=== PATIENT | female | born 1970 | race Caucasian/White ===

== ENCOUNTER → 2024-01-13 06:29 | Day surgery (SDC) | payer OTHER, SELFPAY | LOC: GI 06:29 | PROVIDERS: ATTENDING PHYSICIAN Internal Medicine Gastroenterology; FAMILY PHYSICIAN Family Medicine | DX: Z12.11 Encounter for screening for malignant neoplasm of colon (principal); R93.3 Abnormal findings on diagnostic imaging of other parts of digestive tract; K57.30 Diverticulosis of large intestine without perforation or abscess without bleeding; R14.0 Abdominal distension (gaseous); K31.89 Other diseases of stomach and duodenum; K29.50 Unspecified chronic gastritis without bleeding | CPT/HCPCS: 45380; 43239; 88305; 88342 ==

== ENCOUNTER 2024-11-08 18:49 | Emergency (ER) | payer MEDICARE, OTHER, SELFPAY ==
[2024-11-08 18:59] VITALS: BP 138/98
[2024-11-08 19:26] LABS: Urine Albumin Negative (Neg - Trace); Urine Bilirubin Negative (Negative); Urine Character Clear (Clear); Urine Color Yellow; Urine Glucose Negative (Negative); Urine Ketone Negative (Negative); Urine Leukocyte 1+ (Negative); Urine Nitrite Positive (Negative); Urine Occult Blood Negative (Negative); Urine Urobilinogen Negative (Neg - 1+)
[2024-11-08 19:39] LABS: Urine Bacteria Many (Negative); Urine Red Blood Cell 0-2 /HPF (0-2); Urine White Cell 16-20 /HPF (0-5)
[2024-11-08 19:39] LABS: Lactic Acid 1.9 mmol/L (0.7-2.0)
[2024-11-08 19:40] VITALS: BP 128/89
[2024-11-08 19:41] LABS: % Basophils 1.1 % (0-2); % Eosinophils 2.6 % (0-6); % Immature Granulocytes 0.1 % (0-0.5); % Monocytes 6.7 % (1.7-9.3); % Neutrophils 63.5 % (42.2-75.2); Absolute Basophils 0.1 10^3/uL (0-0.2); Absolute Eosinophils 0.2 10^3/uL (0-0.7); Absolute Monocytes 0.5 10^3/uL (0.1-0.6); Absolute Neutrophils 4.8 10^3/uL (1.4-6.5); Hematocrit 41.5 % (37.0-47.0); Hemoglobin 14.3 g/dL (12.0-16.0); Mean Corp Hgb Conc. 34.5 g/dL (33.0-37.0); Mean Corpuscular Hgb 31.5 pg (27.0-31.0); Mean Corpuscular Volume 91.4 fL (81.0-99.0); Mean Platelet Volume 9.5 fL (7.4-10.4); Nucleated Red Blood Cells % 0 %; Platelet Count 247 10^3/uL (130-400); Red Blood Cell Count 4.54 10^6/uL (4.20-5.40); Red Cell Dist. Width 11.9 % (11.5-14.5); White Blood Cell Count 7.6 10^3/uL (4.8-10.8)
[2024-11-08 19:42] VITALS: BMI 25.4
[2024-11-08 19:55] LABS: HCG, Serum Qualitative Screen Negative
--- NOTE | 2024-11-08 19:59 | ED.GENMED ---
History of Present Illness
<DO Mariza Mcbride Filed: 11/08/24 20:02>
General
Chief Complaint: Abdominal Pain
Source: patient
Time Seen by Provider: 11/08/24 19:45
History of Present Illness
History of Present Illness:
54-year-old female presents to the emergency room by ambulance for evaluation of abdominal pain. Patient had a sudden onset of abdominal pain couple hours prior to arrival. Patient was eating dinner at the time. She went home hoping the pain
would pass but it was not. They were planning to bring the patient to the emergency room by private vehicle but while walking out of the car she became limp. Family then called 911. Patient arrives awake, conversant. She has a history of
malignant melanoma for which she had chemotherapy.
Past History
<DO Mariza Mcbride Last Filed: 11/08/24 20:02>
Past History
ED Past Medical History: Asthma, Cancer (metastatic melanoma), Other (Herniated disc) and Other (Chronic R shoulder pain)
ED Past Surgical History: Appendectomy and Gynecological (lumpectomy summer)
Social History
Tobacco: Non-smoker
Alcohol: Occasional
Personal:
Living: with family
Employment: Employed
Family History
Family History: Other (Parkinson's)
Phy Exam
<DO Mariza Mcbride Last Filed: 11/08/24 20:02>
Physical Exam
Physical Exam:
General: Awake, Alert, Oriented X3. Patient appears uncomfortable
Vitals: unremarkable
Head: Atraumatic
Eyes: Pupils equal, EOMI
Throat: Airway intact, no exudates
Neck: Trachea midline
Lungs: Clear and equal b/l
Heart: Regular rate, no murmurs
Abd: Soft, tender to palpation lower abdomen, no rebound, No pulsatile mass
Neuro: Nonfocal
Skin: Warm, dry, no rash
Extremities: pulses equal b/l, no edema
Course
<Sanchez Gómez, DO - Last Filed: 11/08/24 20:02>
Orders/Labs/Results
Orders:
Orders
11/08/24 19:03
Electrocardiogram (*1) Urgent
Reason for Study: Other
Other Reason for Exam: jaw pain
11/08/24 19:04
EKG- Treatment ONCE
Test Result ONCE
11/08/24 19:15
Urine Culture Reflexed from UA [Urinalysis Reflex To Culture] Urgent
Date Specimen was Collected: 11/08/24
Time Specimen was Collected: 19:07
Urine Microscopic Reflex Cult Urgent
Urine Culture Urgent
EVERARDO Source: U
Specimen Description:
Date Specimen was Collected: 11/08/24
Time Specimen was Collected: 19:07
11/08/24 19:18
Complete Blood Count/With Diff Urgent
Comprehensive Metabolic Panel Urgent
HCG, Serum Qualitative Screen Urgent
Lactic Acid Urgent
Lipase Urgent
Troponin I Urgent
11/08/24 19:57
HYDROmorphone [Dilaudid] 0.5 mg IV NOW STA
11/08/24 19:58
CT Abd/pelvis W Iv Cont Urgent
Comment:
Reason For Exam: severe lower abd pain
Lactated Ringers [Lr] 1,000 ml IV BOLUS
11/08/24 23:56
0.9% Sodium Chloride 1000 ml [Nss] 1,000 ml IV BOLUS
11/09/24 00:00
US Pelvis Only (non-obstetric) Urgent
Reason For Exam: sudden pelvic pain, eval for torsion
11/09/24 00:02
Ketorolac [Toradol] 15 mg .ROUTE .STK-MED ONE
11/09/24 00:03
Ketorolac [Toradol] 15 mg IV NOW STA
11/09/24 01:44
Diphenhydramine [Benadryl] 25 mg IV NOW STA
Metoclopramide [Reglan] 10 mg IV NOW STA
Abnormal Lab Results
11/08/24 11/08/24
19:15 19:18
MCH 31.5 H pg
(27.0-31.0)
Creatinine 0.5 L mg/dL
(0.6-1.0)
Glucose 105 H mg/dl
(70-99)
Urine Nitrite (Reflex) Positive A
(Negative)
Leukocyte Esterase Rfl 1+ A
(Negative)
Urine WBC (Reflex) 16-20 A /HPF
(0-5)
Urine Bacteria (Reflex) Many A
(Negative)
11/08/24 19:18
11/08/24 19:18
Vital Signs
Initial and Last Documented VS:
Initial Vital Signs
Temp Pulse Resp BP Pulse Ox
36.4 C 93 20 138/98 97
11/08/24 18:59 11/08/24 18:59 11/08/24 18:59 11/08/24 18:59 11/08/24 18:59
Last Documented Vital Signs
Temp Pulse Resp BP Pulse Ox
36.4 C 77 19 121/78 99
11/08/24 18:59 11/09/24 02:05 11/09/24 02:05 11/09/24 02:05 11/09/24 02:05
<Shemar Dobson, DO - Last Filed: 11/09/24 02:40>
Orders/Labs/Results
Orders:
Orders
11/08/24 19:03
Electrocardiogram (*1) Urgent
Reason for Study: Other
Other Reason for Exam: jaw pain
11/08/24 19:04
EKG- Treatment ONCE
Test Result ONCE
11/08/24 19:15
Urine Culture Reflexed from UA [Urinalysis Reflex To Culture] Urgent
Date Specimen was Collected: 11/08/24
Time Specimen was Collected: 19:07
Urine Microscopic Reflex Cult Urgent
Urine Culture Urgent
EVERARDO Source: U
Specimen Description:
Date Specimen was Collected: 11/08/24
Time Specimen was Collected: 19:07
11/08/24 19:18
Complete Blood Count/With Diff Urgent
Comprehensive Metabolic Panel Urgent
HCG, Serum Qualitative Screen Urgent
Lactic Acid Urgent
Lipase Urgent
Troponin I Urgent
11/08/24 19:57
HYDROmorphone [Dilaudid] 0.5 mg IV NOW STA
11/08/24 19:58
CT Abd/pelvis W Iv Cont Urgent
Comment:
Reason For Exam: severe lower abd pain
Lactated Ringers [Lr] 1,000 ml IV BOLUS
11/08/24 23:56
0.9% Sodium Chloride 1000 ml [Nss] 1,000 ml IV BOLUS
11/09/24 00:00
US Pelvis Only (non-obstetric) Urgent
Reason For Exam: sudden pelvic pain, eval for torsion
11/09/24 00:02
Ketorolac [Toradol] 15 mg .ROUTE .STK-MED ONE
11/09/24 00:03
Ketorolac [Toradol] 15 mg IV NOW STA
11/09/24 01:44
Diphenhydramine [Benadryl] 25 mg IV NOW STA
Metoclopramide [Reglan] 10 mg IV NOW STA
Abnormal Lab Results
11/08/24 11/08/24
19:15 19:18
MCH 31.5 H pg
(27.0-31.0)
Creatinine 0.5 L mg/dL
(0.6-1.0)
Glucose 105 H mg/dl
(70-99)
Urine Nitrite (Reflex) Positive A
(Negative)
Leukocyte Esterase Rfl 1+ A
(Negative)
Urine WBC (Reflex) 16-20 A /HPF
(0-5)
Urine Bacteria (Reflex) Many A
(Negative)
11/08/24 19:18
11/08/24 19:18
Vital Signs
Initial and Last Documented VS:
Initial Vital Signs
Temp Pulse Resp BP Pulse Ox
36.4 C 93 20 138/98 97
11/08/24 18:59 11/08/24 18:59 11/08/24 18:59 11/08/24 18:59 11/08/24 18:59
Last Documented Vital Signs
Temp Pulse Resp BP Pulse Ox
36.4 C 77 19 121/78 99
11/08/24 18:59 11/09/24 02:05 11/09/24 02:05 11/09/24 02:05 11/09/24 02:05
<Shemar Dobson, DO - Last Filed: 11/09/24 02:40>
*Critical Care Note
Total Time (30-74mins, 75-104mins- exclusive of procedures): Not Applicable
<Shemar Dobson, DO - Last Filed: 11/09/24 02:40>
Update Note
Update Note:
I evaluated patient at bedside at 1:40 AM. Ultrasound imaging is unremarkable. Urinalysis suggest more of a contamination and blood work unremarkable. Nausea persists but she states that she does not want to try any Zofran. Will try Reglan with
Benadryl.
2:40 AM: Patient overall improved after Reglan Benadryl and wants to go home.
ED Attending Note
<Sanchez Gómez DO - Last Filed: 11/08/24 20:02>
-
Portions of this chart may have been created with voice recognition software.� Occasional wrong word or��sound alike� substitutions may have occurred due to the inherent limitations of voice recognition software.
Discharge Plan
Departure
Patient Disposition: Home (Routine Discharge)
Date of Disposition: 11/09/24
Time of Disposition: 02:38
Patient with high blood pressure during this ER visit?: Yes
Condition: Good
Discharge Problem:
Abdominal pain, Constipation
Instructions: Constipation, Adult (DC), Abdominal Pain
Prescriptions:
No Action
gabapentin [Neurontin] 600 MG tablet
600 mg PO HS
paroxetine HCl 20 MG tablet
20 mg PO DAILY
dextroamphetamine-amphetamine [Adderall XR] 10 MG capsule,extended release 24hr
10 mg PO DAILY PRN (Reason: ADD)
hydrocodone-acetaminophen 1 TABLET tablet
1 tab PO Q4HPRN PRN (Reason: pain) Qty: 7 0RF
Referrals:
Tim Faustin DO [Family Provider] -
Activity Restrictions/Additional Instructions:
You can use Miralax one capful twice a day for constipation. Ultrasound imaging was unremarkable. Blood work was normal. Return here if worse or other concerns. We did give you a dose of Reglan with Benadryl tonight for nausea.
Interventions
Interventions:
*Risk Screen - Suicide Last Done: 11/08/24 20:36
*General Assessment Last Done: 11/08/24 18:59
*Neglect/Abuse Screening Last Done: 11/08/24 20:36
ED- Fall Risk Assessment Last Done: 11/08/24 19:41
*ED COVID-19 Vaccine History Last Done: 11/08/24 20:36
LJ-Kcpwgl-Wzmfjunodo Assessment Last Done: 11/08/24 19:36
Discharge Date and Time
Print Language: ARABIC
[2024-11-08 20:01] LABS: ALT (SGPT) 32 U/L (0-35); AST (SGOT) 34 U/L (14-36); Albumin 4.9 g/dl (3.5-5.0); Alkaline Phosphatase 53 U/L (38-126); Blood Urea Nitrogen 11 mg/dl (7-17); Calcium 9.6 mg/dl (8.4-10.2); Carbon Dioxide 22 mmol/L (22-30); Chloride 104 mmol/L (98-107); Estimated Creatinine Clearance 91 ml/min; Glucose 105 mg/dl (70-99); Potassium 3.8 mmol/L (3.5-5.1); Sodium 140 mmol/L (135-145); Total Bilirubin 0.3 mg/dl (0.2-1.3); Total Protein 7.4 g/dl (6.3-8.2); eGFR > 60.00
[2024-11-08 20:02] LABS: Lipase 216 U/L (23-300)
[2024-11-08 20:09] LABS: Troponin I < 0.012 ng/ml
[2024-11-08] MEDS: LR 1000 IV (20:21)
[2024-11-08] MEDS: DILAUDID 0.5 MG IV (20:21)
[2024-11-08 20:23] VITALS: BP 121/79
[2024-11-08 21:00] VITALS: BP 125/82
[2024-11-08 22:10] VITALS: BP 128/94
[2024-11-08 23:03] VITALS: BP 137/87
[2024-11-09] VITALS: BP 139/91
[2024-11-09] MEDS: NSS 1000 IV
[2024-11-09] MEDS: TORADOL 15 MG IV (00:03)
[2024-11-09 01:17] VITALS: BP 126/83
[2024-11-09] MEDS: REGLAN 10 MG IV (01:52)
[2024-11-09] MEDS: BENADRYL 25 MG IV (01:53)
[2024-11-09 02:00] VITALS: BP 120/83
[2024-11-09 02:05] VITALS: BP 121/78
== END 2024-11-09 02:50 | disposition home or self-care (01) ==
LOC: EMR 18:49
PROVIDERS: Emergency Medicine; Student in an Organized Health Care Education/Training Program; EMERGENCY PHYSICIAN Emergency Medicine; FAMILY PHYSICIAN Family Medicine
DX: R10.30 Lower abdominal pain, unspecified (principal); K59.00 Constipation, unspecified; R11.0 Nausea; R68.84 Jaw pain; R03.0 Elevated blood-pressure reading, without diagnosis of hypertension; M25.511 Pain in right shoulder; J45.909 Unspecified asthma, uncomplicated; G89.29 Other chronic pain; Z85.820 Personal history of malignant melanoma of skin; Z92.21 Personal history of antineoplastic chemotherapy; Z88.2 Allergy status to sulfonamides
CPT/HCPCS: 99285; 96375 ×3; 96361 ×2; 96374; 74177; 76856; 80053; 81003; 81015; 83605; 83690; 84484; 84703; 85025; 87077; 87086; 87186; 93005; Q9967

== ENCOUNTER 2025-03-22 11:36 | Emergency (ER) | payer MEDICARE, SELFPAY ==
[2025-03-22 11:48] VITALS: BP 117/84
[2025-03-22 12:10] LABS: Urine Albumin Negative (Neg - Trace); Urine Bilirubin Negative (Negative); Urine Character Clear (Clear); Urine Color Yellow; Urine Glucose Negative (Negative); Urine Ketone Negative (Negative); Urine Leukocyte 1+ (Negative); Urine Nitrite Negative (Negative); Urine Occult Blood Negative (Negative); Urine Urobilinogen Negative (Neg - 1+)
--- NOTE | 2025-03-22 12:41 | ED.GENMED ---
History of Present Illness
<Jessie Krueger PA-C - Last Filed: 03/23/25 01:47>
General
Chief Complaint: Abdominal Symptoms
Source: patient
Exam Limitations: none
Time Seen by Provider: 03/22/25 12:01
Nursing documentation reviewed up to this point in time: agreed with
History of Present Illness
History of Present Illness:
Patient is a 54-year-old female with history of metastatic melanoma presenting to the emergency department for evaluation of back pain. Patient reports pain in right lower back which radiates around her right side and into her right groin which
started last . At first symptoms were intermittent in nature and seem to be associated with movement although over the past day pain has intensified. Patient denies any associated fever, chills, vomiting. She denies any diarrhea or
constipation. No hematuria, dysuria, or urinary frequency. No chest pain, shortness breath, or cough. No groin paresthesias or numbness/tingling or weakness in extremities.
She was seen by her primary care on Friday where she had a urinalysis performed and was started on a 5-day course of Macrobid and given a muscle relaxer. She has been taking antibiotic as prescribed although reports no improvement in symptoms
despite Flexeril and Macrobid.
No known inciting injury or trauma.
Past History
<Jessie Krueger PA-C - Last Filed: 03/23/25 01:47>
Past History
ED Past Medical History: Asthma, Cancer (metastatic melanoma), Other (Herniated disc) and Other (Chronic R shoulder pain)
ED Past Surgical History: Appendectomy and Gynecological (lumpectomy summer)
Social History
Tobacco: Non-smoker
Alcohol: Occasional
Personal:
Living: with family
Employment: Employed
Family History
Family History: Other (Parkinson's)
Review of Systems
<Jessie Krueger PA-C - Last Filed: 03/23/25 01:47>
Review of Systems
Allergies reviewed?: Yes
All Other Systems: ROS reviewed and negative except as documented in HPI and ROS
Phy Exam
<Jessie Krueger PA-C - Last Filed: 03/23/25 01:47>
Physical Exam
Physical Exam:
Vitals: Patient's vital signs are stable. Afebrile
General: Patient is well appearing, no acute distress. Nontoxic appearing
Skin: Warm and dry, no rashes or lesions
Head: Normocephalic, atraumatic
Eyes: Sclera nonicteric. EOMs intact. No nystagmus.
Throat: Protecting airway
Neck: Normal ROM, no cervical spine tenderness, no meningismus
Cardiac: Regular rate and rhythm, no murmurs. Palpable peripheral pulses equal bilaterally.
Pulm: Normal respiratory effort, no wheezes, rales, rhonchi heard on exam
.
Abdomen: Abdomen soft. Tenderness in right inguinal region. No rebound tenderness or guarding. No palpable mass. No rash.
Back: Reproducible tenderness to right lower back. Negative straight leg raise on right. No rash.
Extremities: No evidence of cyanosis or edema
Neuro: AAOx3. Grossly intact.
Psychiatric: Normal affect.
Course
<Jessie Krueger PA-C - Last Filed: 03/23/25 01:47>
Orders/Labs/Results
Orders:
Orders
03/22/25 11:59
HCG, Urine Qualitative Screen Urgent
Date Specimen was Collected: 03/22/25
Time Specimen was Collected: 11:52
Urinalysis Reflex To Culture Urgent
Date Specimen was Collected: 03/22/25
Time Specimen was Collected: 11:52
Urine Microscopic Reflex Cult Urgent
Urine Culture Urgent
EVERARDO Source: U
Specimen Description:
Date Specimen was Collected: 03/22/25
Time Specimen was Collected: 11:52
03/22/25 12:22
Abdomen/Pelvis wo Contrast CT [CT Abd/pelvis Wo Iv Cont] Urgent
Comment:
Reason For Exam: Right lower back/ right inguinal pain
0.9% Sodium Chloride 1000 ml [Nss] 1,000 ml IV BOLUS
Ketorolac [Toradol] 15 mg IV NOW STA
03/22/25 12:37
Basic Metabolic Panel Urgent
Complete Blood Count/With Diff Urgent
03/22/25 12:41
Add On- LAB Urgent
Tests Added?: serum hcg
03/22/25 13:45
HYDROmorphone [Dilaudid] 0.5 mg IV NOW STA
03/22/25 14:30
Comprehensive Metabolic Panel Urgent
03/22/25 15:49
Add On - Microbiology Urgent
Tests Added?: urine culture
Abnormal Lab Results
03/22/25 03/22/25 03/22/25
11:59 12:37 14:30
MCH 31.6 H pg
(27.0-31.0)
Chloride 111 H mmol/L 112 H mmol/L
(98-107) (98-107)
Creatinine 0.5 L mg/dL
(0.6-1.0)
Glucose 106 H mg/dl
(70-99)
Leukocyte Esterase Rfl 1+ A
(Negative)
03/22/25 12:37
03/22/25 14:30
Vital Signs
Initial and Last Documented VS:
Initial Vital Signs
Temp Resp BP Pulse Ox
97.7 F 16 117/84 98
03/22/25 11:48 03/22/25 11:48 03/22/25 11:48 03/22/25 11:48
Last Documented Vital Signs
Temp Resp BP Pulse Ox
97.7 F 16 117/84 98
03/22/25 11:48 03/22/25 11:48 03/22/25 11:48 03/22/25 11:48
<Trish Hardwick MD - Last Filed: 03/22/25 16:48>
Orders/Labs/Results
Orders:
Orders
03/22/25 11:59
HCG, Urine Qualitative Screen Urgent
Date Specimen was Collected: 03/22/25
Time Specimen was Collected: 11:52
Urinalysis Reflex To Culture Urgent
Date Specimen was Collected: 03/22/25
Time Specimen was Collected: 11:52
Urine Microscopic Reflex Cult Urgent
Urine Culture Urgent
EVERARDO Source: U
Specimen Description:
Date Specimen was Collected: 03/22/25
Time Specimen was Collected: 11:52
03/22/25 12:22
Abdomen/Pelvis wo Contrast CT [CT Abd/pelvis Wo Iv Cont] Urgent
Comment:
Reason For Exam: Right lower back/ right inguinal pain
0.9% Sodium Chloride 1000 ml [Nss] 1,000 ml IV BOLUS
Ketorolac [Toradol] 15 mg IV NOW STA
03/22/25 12:37
Basic Metabolic Panel Urgent
Complete Blood Count/With Diff Urgent
03/22/25 12:41
Add On- LAB Urgent
Tests Added?: serum hcg
03/22/25 13:45
HYDROmorphone [Dilaudid] 0.5 mg IV NOW STA
03/22/25 14:30
Comprehensive Metabolic Panel Urgent
03/22/25 15:49
Add On - Microbiology Urgent
Tests Added?: urine culture
Abnormal Lab Results
03/22/25 03/22/25 03/22/25
11:59 12:37 14:30
MCH 31.6 H pg
(27.0-31.0)
Chloride 111 H mmol/L 112 H mmol/L
(98-107) (98-107)
Creatinine 0.5 L mg/dL
(0.6-1.0)
Glucose 106 H mg/dl
(70-99)
Leukocyte Esterase Rfl 1+ A
(Negative)
03/22/25 12:37
03/22/25 14:30
Vital Signs
Initial and Last Documented VS:
Initial Vital Signs
Temp Resp BP Pulse Ox
97.7 F 16 117/84 98
03/22/25 11:48 03/22/25 11:48 03/22/25 11:48 03/22/25 11:48
Last Documented Vital Signs
Temp Resp BP Pulse Ox
97.7 F 16 117/84 98
03/22/25 11:48 03/22/25 11:48 03/22/25 11:48 03/22/25 11:48
<Jessie Krueger PA-C - Last Filed: 03/23/25 01:47>
MDM/Problems Addressed
Differential Diagnosis Includes:
Not limited to: Ureterolithiasis, pyelonephritis, cystitis, ovarian cyst/mass, sciatica, metastatic disease, etc.
MDM/Problems Addressed:
54-year-old female presenting with right lower back pain radiating into right groin. Symptoms ongoing for the past week, seen by PCP and started on course of Macrobid for suspected UTI without improvement in symptoms. No improvement with muscle
relaxer. No associated fever, chest pain, shortness of breath, urinary symptoms, vomiting, saddle paresthesias, LE numbness/weakness or other neurologic deficits. Pain does seem worse w/ movement. Vitals stable on arrival. Patient is afebrile.
Physical exam as above. Differential broad. Will send basic labs, urinalysis, and non-con CT of abdomen/pelvis. IVF and pain management
Update: Labs reviewed. No clinically significant abnormalities on CBC or chemistry. Urine without evidence of infection or RBCs. CT scan shows no evidence of kidney stone or other acute intra-abdominal process. Unclear exact etiology for symptoms
today. Given patient afebrile w/ benign abdominal exam and no leukocytosis � do not suspect infectious process. Do not suspect emergent musculoskeletal/neurological process such as cauda equina. Do not suspect aortic pathology or other vascular
emergency. Symptoms possibly muscular vs. sciatica. Did contact patients PCP and reviewed urine culture results which was positive for E. coli and sensitive to macrobid. Advised patient to continue macrobid as prescribed and follow w/ PCP. Close
return precautions discussed. Patient seen with attending physician.
Chronic conditions affecting care:
Metastatic melanoma
Acute Exacerbation and/or Progression of Chronic Illness:
N/A
<Jessie Krueger PA-C - Last Filed: 03/23/25 01:47>
*Radiology
Radiology exam reviewed: radiology read reviewed
*Pulse Oximetry
Patient hypoxic: no
*EKG
Interpreted by ED Provider?: NA
*[employer] Interpretation
Rate: [employer]- N/A
*Critical Care Note
Total Time (30-74mins, 75-104mins- exclusive of procedures): Not Applicable
Data Reviewed
Review of Other/Old Records Reveals: Labs (Urine culture results obtained 03/18/2025-positive for E. coli sensitive to Macrobid)
<Jessie Krueger PA-C - Last Filed: 03/23/25 01:47>
Patient Management
Discussion with other providers: Other (Discussed urine culture results with patient's primary care doctor-Dr. Faustin)
ED Attending Note
<Jessie Krueger PA-C - Last Filed: 03/23/25 01:47>
-
Portions of this chart may have been created with voice recognition software.� Occasional wrong word or��sound alike� substitutions may have occurred due to the inherent limitations of voice recognition software.
<Trish Hardwick MD - Last Filed: 03/22/25 16:48>
ED Attending Note
Patient seen and examined by attending physician: Yes
I performed the substantive portion of visit, reviewed & personally made and approve the management plan that is documented in note by myself or KEV.: Yes
ED Attending Note:
54 yr old female with c/o R lower back pain that began one week ago, seen by pcp on fri, dx'd with uti, on abx and baclofen. Feels pain getting worse. No f/c/v/cp/sob/numb/tingling/weakness/incontinence/perianal anesthesia. No swelling/redness or
rash. Pt is able to walk without difficulty now, notes pain worse at night, somestimes radiates around to rlq area. Worse with certain movemetns. ON exam, pt aao times three, in nad, feels 'fine' now s/p meds, maee without diffiulty. Long d/w pt
regarding testing, findings of constipation which are unlikely true cause of her sxs, ddx to include radiculopathy/ spine related (but not emergent) related illness such as disc herniation, msk, etc. She will be givena copy of her results nad /fu
with pcp in am. No s/sxs to suggest CE, acute vascular event, etc. We will contact pcp now to make him aware, and inquire re:cx results from last week.
Discharge Plan
Departure
Patient Disposition: Home (Routine Discharge)
Date of Disposition: 03/22/25
Time of Disposition: 16:50
Patient with high blood pressure during this ER visit?: No
Condition: Good
Discharge Problem:
Lower back pain
Instructions: Low back pain - ED discharge instructions
Prescriptions:
New
oxycodone-acetaminophen [Percocet] 5-325 mg tablet
1 tab PO Q6H PRN (Reason: Pain) Qty: 7 0RF
No Action
gabapentin [Neurontin] 600 MG tablet
600 mg PO HS
paroxetine HCl 20 MG tablet
20 mg PO DAILY
dextroamphetamine-amphetamine [Adderall XR] 10 MG capsule,extended release 24hr
10 mg PO DAILY PRN (Reason: ADD)
hydrocodone-acetaminophen 1 TABLET tablet
1 tab PO Q4HPRN PRN (Reason: pain) Qty: 7 0RF
amoxicillin-pot clavulanate 875-125 mg tablet
1 tab PO BID 7 Days Qty: 14 0RF
Referrals:
Tim Faustin DO [Family Provider] - Follow up in 5-7 days
Activity Restrictions/Additional Instructions:
RETURN TO THE EMERGENCY DEPARTMENT ANY FEVER, CHILLS, SEVERE BACK PAIN, WORSENING/PERSISTENT ABDOMINAL PAIN, INTRACTABLE NAUSEA/VOMITING, NUMBNESS/TINGLING OR WEAKNESS IN LOWER EXTREMITIES, BOWEL/BLADDER INCONTINENCE, OR ANY OTHER CONCERNS
- As discussed - your workup in the emergency department showed no acute abnormalities including lab work, urinalysis, and CT scan abdomen/pelvis.
- We are unsure the exact cause of her back pain today although this may be muscular in nature. You can take Tylenol and/or Motrin as needed for pain. I have sent a few Percocet you can take for severe pain. This may cause drowsiness you should
not take prior to driving.
- Follow-up with your primary care for further evaluation/management and to ensure that symptoms are improving. You should also follow with your doctors down at [place].
Monitor your symptoms closely and return to the emergency department with any acute worsening/new symptoms or any other concerns
Interventions
Interventions:
*Risk Screen - Suicide Last Done: 03/22/25 11:51
*General Assessment Last Done: 03/22/25 12:08
*Neglect/Abuse Screening Last Done: 03/22/25 11:51
*ED- Fall Risk Assessment Last Done: 03/22/25 12:08
*ED COVID-19 Vaccine History Last Done: 03/22/25 12:08
*Nursing Disposition Last Done: 03/22/25 17:05
UZ-Qadczf-Jcplodlyay Assessment Last Done: 03/22/25 12:11
Discharge Date and Time
Discharge Date/Time: 03/22/25 17:06
Print Language: MACEDONIAN
[2025-03-22] MEDS: NSS 1000 IV (12:45)
[2025-03-22] MEDS: TORADOL 15 MG IV (12:45)
[2025-03-22 13:05] LABS: % Basophils 1.1 % (0-2); % Eosinophils 2.6 % (0-6); % Immature Granulocytes 0.1 % (0-0.5); % Monocytes 5.7 % (1.7-9.3); % Neutrophils 66.5 % (42.2-75.2); Absolute Basophils 0.1 10^3/uL (0-0.2); Absolute Eosinophils 0.2 10^3/uL (0-0.7); Absolute Lymphocytes 1.9 10^3/uL (1.2-3.4); Absolute Monocytes 0.5 10^3/uL (0.1-0.6); Absolute Neutrophils 5.4 10^3/uL (1.4-6.5); Hematocrit 43.4 % (37.0-47.0); Hemoglobin 14.7 g/dL (12.0-16.0); Mean Corp Hgb Conc. 33.9 g/dL (33.0-37.0); Mean Corpuscular Hgb 31.6 pg (27.0-31.0); Mean Corpuscular Volume 93.3 fL (81.0-99.0); Mean Platelet Volume 9.8 fL (7.4-10.4); Nucleated Red Blood Cells % 0 %; Platelet Count 278 10^3/uL (130-400); Red Blood Cell Count 4.65 10^6/uL (4.20-5.40); Red Cell Dist. Width 12.2 % (11.5-14.5); White Blood Cell Count 8.1 10^3/uL (4.8-10.8)
[2025-03-22 13:23] LABS: Urine Amorphous Seen; Urine Red Blood Cell 0-2 /HPF (0-2); Urine White Cell 0-2 /HPF (0-5)
[2025-03-22 13:25] LABS: Blood Urea Nitrogen 12 mg/dl (7-17); Calcium 9.7 mg/dl (8.4-10.2); Carbon Dioxide 25 mmol/L (22-30); Chloride 111 mmol/L (98-107); Glucose 106 mg/dl (70-99); Sodium 142 mmol/L (135-145); eGFR > 60.00
[2025-03-22 13:29] LABS: HCG, Urine Qualitative Screen Negative
[2025-03-22] MEDS: DILAUDID 0.5 MG IV (14:29)
[2025-03-22 14:55] LABS: ALT (SGPT) 19 U/L (0-35); AST (SGOT) 25 U/L (14-36); Albumin 4.3 g/dl (3.5-5.0); Alkaline Phosphatase 67 U/L (38-126); Blood Urea Nitrogen 11 mg/dl (7-17); Calcium 9.2 mg/dl (8.4-10.2); Carbon Dioxide 26 mmol/L (22-30); Chloride 112 mmol/L (98-107); Glucose 85 mg/dl (70-99); Potassium 4.7 mmol/L (3.5-5.1); Sodium 143 mmol/L (135-145); Total Bilirubin 0.5 mg/dl (0.2-1.3); Total Protein 6.7 g/dl (6.3-8.2); eGFR > 60.00
== END 2025-03-22 17:06 | disposition home or self-care (01) ==
LOC: EMR 11:36
PROVIDERS: Emergency Medicine; Physician Assistant; EMERGENCY PHYSICIAN Student in an Organized Health Care Education/Training Program; FAMILY PHYSICIAN Family Medicine
DX: M54.50 Low back pain, unspecified (principal)
CPT/HCPCS: 99285; 96374; 96375; 96361; 74176; 80048; 80053; 81003; 81015; 81025; 85025; 87086

== ENCOUNTER 2025-07-12 09:37 | Emergency (ER) | payer MEDICARE, SELFPAY ==
[2025-07-12 09:39] VITALS: BP 136/98
[2025-07-12] MEDS: TYLENOL 650 MG PO (10:34)
--- NOTE | 2025-07-12 10:55 | ED.GENMED ---
History of Present Illness
<Lynne Reddy MD, Resident - Last Filed: 07/12/25 12:26>
General
Chief Complaint: Skin Surface Trauma
Source: patient
Time Seen by Provider: 07/12/25 10:22
History of Present Illness
History of Present Illness:
Patient is a 54-year-old woman who presents to the emergency department with left middle finger injury. she was in her normal state of health 2 hours prior to her presentation when unfortunately she dropped a weight at the gym on her middle finger.
She immediately covered the finger and gave pressure to it. She noticed that the skin had split in her finger when she looked at it. She feels queasy at the site of blood so she avoided looking at it any further. She is able to bend the finger
normally and there is no reduction in range of movement. Fingernail remains attached. She hopes to be patched up so that she can continue on with her day.
Past History
<Lynne Reddy MD, Resident - Last Filed: 07/12/25 12:26>
Past History
ED Past Medical History: Asthma, Cancer (metastatic melanoma), Other (Herniated disc) and Other (Chronic R shoulder pain)
ED Past Surgical History: Appendectomy and Gynecological (lumpectomy summer)
Social History
Tobacco: Non-smoker
Alcohol: Occasional
Personal:
Living: with family
Employment: Employed
Family History
Family History: Other (Parkinson's)
Review of Systems
<Lynne Reddy MD, Resident - Last Filed: 07/12/25 12:26>
Review of Systems
Constitutional: Reports no symptoms
EENT: Reports no symptoms
Respiratory: Reports no symptoms
Cardiac: Reports no symptoms
ABD/GI: Reports no symptoms
: Reports no symptoms
Musculoskeletal: Reports muscle pain (Right middle finger pain)
Skin: Reports other (Bleeding and clotting of the right middle finger)
Neurological: Reports no symptoms
Endocrine: Reports no symptoms
Hematologic/Lymphatic: Reports no symptoms
Psychiatric: Reports no symptoms
Phy Exam
<Lynne Reddy MD, Resident - Last Filed: 07/12/25 12:26>
General Physical Exam
General Presentation: well appearing
General age: appears stated age
General Skin: warm, dry and other (Skin of the dorsum of right middle finger lacerated with a 1 inch laceration. Visible bruising seen around laceration wound.)
General Habitus: normal
General Mental: alert
General Hydration: appears well hydrated
Cardiovascular Exam
Cardiovascular Exam: regular rate/rhythm, no edema, no gallop, no JVD and no murmur
Pulmonary Exam
Pulmonary Exam: lungs clear, no respiratory distress, no rales, chest non tender, no crackles, no rhonchi, no stridor, no wheezing and no cough
Cough: no cough
Musculoskeletal Exam
Musculoskeletal Exam: full ROM and no edema
Psychiatric Exam
Psychiatric Exam: normal mood/affect
Course
<Lynne Reddy MD, Resident - Last Filed: 07/12/25 12:26>
Orders/Labs/Results
Orders:
Orders
07/12/25 09:41
Finger(s)/Thumb 2 View Rt [CR Finger(s)/thumb Min 2 Vw Rt] Urgent
Comment:
Reason For Exam: at gym and plate smashed down on finger tip
Indicate Which Finger:: Middle Finger
07/12/25 10:29
Acetaminophen [Tylenol] 650 mg PO NOW STA
07/12/25 11:03
Discharge Patient As Directed
Discharge patient after: Steri-strips and bandaging
Vital Signs
Initial and Last Documented VS:
Initial Vital Signs
Temp Pulse Resp BP Pulse Ox
98.0 F 95 16 136/98 96
07/12/25 09:39 07/12/25 09:39 07/12/25 09:39 07/12/25 09:39 07/12/25 09:39
Last Documented Vital Signs
Temp Pulse Resp BP Pulse Ox
98.0 F 95 18 136/98 96
07/12/25 09:39 07/12/25 09:39 07/12/25 11:08 07/12/25 09:39 07/12/25 10:56
<Derik Wislon MD - Last Filed: 07/13/25 08:31>
Orders/Labs/Results
Orders:
Orders
07/12/25 09:41
Finger(s)/Thumb 2 View Rt [CR Finger(s)/thumb Min 2 Vw Rt] Urgent
Comment:
Reason For Exam: at gym and plate smashed down on finger tip
Indicate Which Finger:: Middle Finger
07/12/25 10:29
Acetaminophen [Tylenol] 650 mg PO NOW STA
07/12/25 11:03
Discharge Patient As Directed
Discharge patient after: Steri-strips and bandaging
Vital Signs
Initial and Last Documented VS:
Initial Vital Signs
Temp Pulse Resp BP Pulse Ox
98.0 F 95 16 136/98 96
07/12/25 09:39 07/12/25 09:39 07/12/25 09:39 07/12/25 09:39 07/12/25 09:39
Last Documented Vital Signs
Temp Pulse Resp BP Pulse Ox
98.0 F 95 18 136/98 96
07/12/25 09:39 07/12/25 09:39 07/12/25 11:08 07/12/25 09:39 07/12/25 10:56
<Lynne Reddy MD, Resident - Last Filed: 07/12/25 12:26>
*Pulse Oximetry
SaO2: 96
Oxygen Mode of Delivery: Room air
Patient hypoxic: no
*Critical Care Note
Total Time (30-74mins, 75-104mins- exclusive of procedures): 60
<Lynne Reddy MD, Resident - Last Filed: 07/12/25 12:26>
Update Note
Update Note:
Problem List:
Laceration of the right middle finger
Plan:
clean and irrigate the wound
acetaminophen 650 mg for analgesia
Steri-Strips and bandage wound
follow-up with primary care provider in 1 week after discharge
Differential Diagnoses:
laceration of the right middle finger
crush injury of the right middle finger
Radiology:
right middle finger x-ray conducted on 07/12/2025: No signs of fracture
EKG: not applicable
Labs: not applicable
Updates:
patient arrived with wound wrapped in a napkin with crusted blood
examination of the finger reveals a laceration of the dorsum of the right middle finger with bruising serration. Fingernail is intact. Full range of motion.
Wound irrigated and cleaned - skin appears to be too thin for sutures and that would not be indicated based on the wound visible. Circulation appears to be intact with palpable pulses.
Will opt for Steri-Strips to keep the wound closed along with wrapped bandage and splinting
patient recommended to avoid strenuous activity or excessively to avoid exacerbating the wound.
patient to follow-up with Dr. Faustin within 1 week after discharge
ED Attending Note
<Lynne Reddy MD, Resident - Last Filed: 07/12/25 12:26>
-
Portions of this chart may have been created with voice recognition software.� Occasional wrong word or��sound alike� substitutions may have occurred due to the inherent limitations of voice recognition software.
<Derik Wilson MD - Last Filed: 07/13/25 08:31>
ED Attending Note
Patient seen and examined by attending physician: Yes
I performed a history and physical exam of patient and discussed management with resident, I reviewed resident's note and agree with documented findings and plan of care.: Yes
ED Attending Note:
Pt presents to ED for finger injury, which occurred at the gym while she was working out. Patient states that she was doing cable workout when the weight appeared to be jammed. She attempted to loosen the weight, when they came down on her
fingers. Denies any other injury. Patient has laceration over the finger pad of her third finger, and nail tripped on her left finger without any other injury. Denies loss of sensation or weakness. Patient states that her tetanus vaccination is
up-to-date.
Physical Exam
General: mild painful distress, not acutely ill. afebrile
Head: nc/at. eomi
Neck: supple. no meningeal signs.
Neuro: alert and oriented x 3. no focal neurological deficits
Skin: no rash
Psychiatric: well kept. interactive and cooperative
Extremities: left 3rd phalnax - an approx 1cm superficial c-shape laceration over volar surface of distal phalnax, without active bleeding, with mild ecchymosis.
X-ray report reviewed and discussed with patient. Superficial wound noted, without significant separation or depth. No indication for suture repair at this time. Wound will be irrigated and Steri-Strip applied, along with bulky dressing. Patient
will be referred to PCP for reevaluation, for reevaluation of healing wound along with any evidence of infection. Patient expresses understanding at time of discharge.
Discharge Plan
Departure
Patient Disposition: Home (Routine Discharge)
Date of Disposition: 07/12/25
Time of Disposition: 10:56
Patient with high blood pressure during this ER visit?: No
Discharge Problem:
Laceration of finger of right hand
Instructions: Wound Care (DC), [facility]
Prescriptions:
No Action
gabapentin [Neurontin] 600 MG tablet
600 mg PO HS
paroxetine HCl 20 MG tablet
20 mg PO DAILY
dextroamphetamine-amphetamine [Adderall XR] 10 MG capsule,extended release 24hr
10 mg PO DAILY PRN (Reason: ADD)
hydrocodone-acetaminophen 1 TABLET tablet
1 tab PO Q4HPRN PRN (Reason: pain) Qty: 7 0RF
amoxicillin-pot clavulanate 875-125 mg tablet
1 tab PO BID 7 Days Qty: 14 0RF
oxycodone-acetaminophen [Percocet] 5-325 mg tablet
1 tab PO Q6H PRN (Reason: Pain) Qty: 7 0RF
Referrals:
Tim Faustin DO [Family Provider, Family Practice] - Follow up in 1 week
Interventions
Interventions:
*Risk Screen - Suicide Last Done: 07/12/25 09:39
*General Assessment Last Done: 07/12/25 11:07
*Neglect/Abuse Screening Last Done: 07/12/25 09:39
*ED- Fall Risk Assessment Last Done: 07/12/25 11:07
*Nursing Disposition Last Done: 07/12/25 11:08
ED-Skin Assessment Last Done: 07/12/25 10:45
Discharge Date and Time
Discharge Date/Time: 07/12/25 11:08
Print Language: TONGAN
== END 2025-07-12 11:08 | disposition home or self-care (01) ==
LOC: EMR 09:37
PROVIDERS: EMERGENCY PHYSICIAN Emergency Medicine; FAMILY PHYSICIAN Family Medicine
DX: S61.213A Laceration without foreign body of left middle finger without damage to nail, initial encounter (principal); S67.192A Crushing injury of right middle finger, initial encounter; W20.8XXA Other cause of strike by thrown, projected or falling object, initial encounter
CPT/HCPCS: 99283; 73140